=== PATIENT | female | born 1985 | race African-American/Black ===

== ENCOUNTER 2021-12-20 16:08 | Emergency (ER) | payer OTHER ==
[~2021-12-20] VITALS: Ht 167.6 cm; Wt 62.6 kg
[2021-12-20] MEDS ORDERED: GLUMETZA1000 MG PO (16:17)
== END 2021-12-20 20:29 | disposition home or self-care (01) ==
LOC: ER 16:08
DX: K29.60 Other gastritis without bleeding (principal)

== ENCOUNTER 2022-05-07 00:31 | Emergency (ER) | payer OTHER ==
[~2022-05-07] VITALS: Ht 160 cm; Wt 54.4 kg
[~2022-05-07 00:31] MED LIST: GLUMETZA1000 MG PO
[2022-05-07] MEDS ORDERED: TENCON 50-3251 EACH PO (05:37)
== END 2022-05-07 05:50 ==
LOC: ER 00:31
DX: G43.009 Migraine without aura, not intractable, without status migrainosus (principal); E11.9 Type 2 diabetes mellitus without complications; Z79.84 Long term (current) use of oral hypoglycemic drugs

== ENCOUNTER 2023-01-19 18:03 | Emergency (ER) | payer OTHER ==
[~2023-01-19] VITALS: Ht 160 cm; Wt 75.7 kg
[~2023-01-19 18:03] MED LIST changes: +TENCON 50-3251 EACH PO
[2023-01-19] MEDS ORDERED: ZESTRIL20 MG PO (18:12)
[2023-01-19] MEDS ORDERED: DICLOFENAC SODI75 MG PO (20:20)
[2023-01-19] MEDS ORDERED: NORFLEX100MG PO (20:20)
== END 2023-01-19 20:27 | disposition home or self-care (01) ==
LOC: ER 18:03
DX: M54.2 Cervicalgia (principal); R51.9 Headache, unspecified; I10 Essential (primary) hypertension; E11.9 Type 2 diabetes mellitus without complications; R11.10 Vomiting, unspecified; Z20.822 Contact with and (suspected) exposure to COVID-19

== ENCOUNTER 2023-03-08 22:34 | Emergency (ER) | payer OTHER ==
[~2023-03-08] VITALS: Ht 162.6 cm; Wt 77.1 kg
[~2023-03-08 22:34] MED LIST changes: +DICLOFENAC SODI75 MG PO; +NORFLEX100MG PO; +ZESTRIL20 MG PO
[2023-03-08] MEDS ORDERED: TOPROL XL25 M1 PO (22:51)
[2023-03-08] MEDS ORDERED: METFORMIN HCL1000 M2 PO (22:51)
== END 2023-03-08 23:56 | disposition home or self-care (01) ==
LOC: ER 22:34
DX: G43.809 Other migraine, not intractable, without status migrainosus (principal)

== ENCOUNTER → 2023-04-18 | Emergency (ER) | payer OTHER ==
[~2023-04-18] VITALS: Ht 160 cm; Wt 75.3 kg
[~2023-04-18] MED LIST changes: +LISINOPRIL-HCT1 EAC1 PO; +METFORMIN HCL1000 M2 PO; +TOPROL XL25 M1 PO
== END | disposition left against medical advice (07) ==
LOC: ER 23:16
DX: Z53.21 Procedure and treatment not carried out due to patient leaving prior to being seen by health care provider (principal)

== ENCOUNTER 2023-04-19 13:11 | Emergency (ER) | payer OTHER ==
[~2023-04-19] VITALS: Ht 160 cm; Wt 75.3 kg
== END 2023-04-19 16:16 | disposition home or self-care (01) ==
LOC: ER 13:11
DX: R60.0 Localized edema (principal); Z91.013 Allergy to seafood

== ENCOUNTER 2023-05-03 22:45 | Emergency (ER) | payer OTHER ==
[~2023-05-03] VITALS: Ht 160 cm; Wt 54.4 kg
== END 2023-05-04 01:55 | disposition home or self-care (01) ==
LOC: ER 22:45
DX: R11.10 Vomiting, unspecified (principal); E11.9 Type 2 diabetes mellitus without complications; Z79.84 Long term (current) use of oral hypoglycemic drugs; Z91.013 Allergy to seafood

== ENCOUNTER → 2023-08-29 | Emergency (ER) | payer OTHER ==
[~2023-08-29] VITALS: Ht 160 cm; Wt 75.3 kg
== END | disposition left against medical advice (07) ==
LOC: ER 21:38
DX: Z53.21 Procedure and treatment not carried out due to patient leaving prior to being seen by health care provider (principal)

== ENCOUNTER 2023-10-17 14:55 | Emergency (ER) | payer OTHER ==
[~2023-10-17] VITALS: Ht 160 cm; Wt 74.8 kg
[2023-10-17 17:04] LABS: HEMATOCRIT 33.7 % (36.0-45.00); HEMOGLOBIN 11.4 g/dL (12.0-15.00); MEAN CELL VOLUME 86.5 fL (80.00-100.00); MEAN CORPUSCULAR HEMOGLOBIN 29.2 pg (27.00-32.0); MEAN CORPUSCULAR HGB CONC 33.8 g/dl (32.0-36.0); PLATELET COUNT 516 K/uL (150-450)
[2023-10-17 18:23] LABS: ALBUMIN 1.9 gm/dL (3.4-5.0); BILIRUBIN TOTAL 0.24 mg/dL (0.3-1.2); CALCIUM 8.8 mg/dL (8.5-10.1); CREATININE SERUM 0.72 mg/dL (0.55-1.02); GFR 91.14; GLOBULINA 3.6 G/DL (2.4-3.5); POTASSIUM 3.49 mEq/L (3.5-5.1); TOTAL PROTEIN 5.5 gm/dL (6.4-8.2)
== END 2023-10-17 23:49 | disposition home or self-care (01) ==
LOC: ER 14:55
PROVIDERS: General Practice
DX: I10 Essential (primary) hypertension (principal); Z20.822 Contact with and (suspected) exposure to COVID-19

== ENCOUNTER 2023-12-16 09:39 | Emergency (ER) | payer OTHER ==
[~2023-12-16] VITALS: Ht 157.5 cm; Wt 74.8 kg
[2023-12-16] MEDS ORDERED: IRON236 MG (10:19)
[2023-12-16] MEDS ORDERED: KETOROLAC TROMETHAMINE 30 MG VIAL IM STA (10:31)
[2023-12-16 11:47] LABS: CALCIUM 8.7 mg/dL (8.5-10.1); CREATININE SERUM 0.79 mg/dL (0.55-1.02); GFR 81.89; POTASSIUM 3.38 mEq/L (3.5-5.1)
== END 2023-12-16 12:35 | disposition home or self-care (01) ==
LOC: ER 09:39
PROVIDERS: General Practice
DX: M94.0 Chondrocostal junction syndrome [Tietze] (principal); Z91.013 Allergy to seafood; E11.9 Type 2 diabetes mellitus without complications; Z79.84 Long term (current) use of oral hypoglycemic drugs

== ENCOUNTER 2024-07-04 10:57 | Emergency (ER) | payer OTHER ==
[~2024-07-04] VITALS: Ht 160 cm; Wt 72.6 kg
[~2024-07-04 10:57] MED LIST changes: +IRON236 MG
[2024-07-04] MEDS ORDERED: HYDROCHLOROTHIA25 MG (11:28)
[2024-07-04] MEDS ORDERED: CARVEDILOL6.25 MG (11:28)
[2024-07-04] MEDS ORDERED: LIPITOR40 M1 (11:28)
[2024-07-04] MEDS ORDERED: FUROsemide 20 MG/2 ML VIAL IV ONE (11:45)
[2024-07-04] MEDS ORDERED: FUROsemide 20 MG/2 ML VIAL ONE (12:02)
[2024-07-04 13:06] LABS: ALBUMIN 1.6 gm/dL (3.4-5.0); BILIRUBIN TOTAL 0.39 mg/dL (0.3-1.2); CALCIUM 8.7 mg/dL (8.5-10.1); CREATININE SERUM 0.78 mg/dL (0.55-1.02); GFR 82.65; GLOBULINA 3.2 G/DL (2.4-3.5); POTASSIUM 3.27 mEq/L (3.5-5.1); TOTAL PROTEIN 4.8 gm/dL (6.4-8.2)
[2024-07-04 13:15] LABS: HEMATOCRIT 33.8 % (36.0-45.00); HEMOGLOBIN 11.3 g/dL (12.0-15.00); MEAN CELL VOLUME 87.4 fL (80.00-100.00); MEAN CORPUSCULAR HEMOGLOBIN 29.2 pg (27.00-32.0); MEAN CORPUSCULAR HGB CONC 33.4 g/dl (32.0-36.0); PLATELET COUNT 428 K/uL (150-450); RED BLOOD COUNT 3.87 M/uL (4.00-6.00)
[2024-07-04 13:36] LABS: URINE APPEARANCE Clear; URINE BILIRRUBIN Negative (NEGATIVE); URINE BLOOD Small; URINE COLOR Yellow; URINE KETONE Negative (NEGATIVE); URINE LEUKOCYTE Negative; URINE NITRATE Negative; URINE UROBILINOGEN 0.2 E.U./dl
[2024-07-04 13:40] LABS: URINE BACTERIA 413.1 uL (0.0-1933); URINE RBC 13.1 uL (0.0-20.8); URINE WBC 15.7 uL (0.0-23.2)
[2024-07-04 13:50] LABS: URINE CAST 1.06 uL (0.0-1.40); URINE GLUCOSE >=1000 MG/DL (NEGATIVE); URINE PROTEIN 300 (NEGATIVE)
== END 2024-07-04 14:03 | disposition home or self-care (01) ==
LOC: ER 10:59
PROVIDERS: Emergency Medicine
DX: R60.0 Localized edema (principal); R10.30 Lower abdominal pain, unspecified; K29.80 Duodenitis without bleeding; N28.1 Cyst of kidney, acquired; I10 Essential (primary) hypertension; E11.9 Type 2 diabetes mellitus without complications; Z79.84 Long term (current) use of oral hypoglycemic drugs; Z91.013 Allergy to seafood

== ENCOUNTER 2025-08-21 22:34 | Emergency (ER) | payer OTHER ==
[~2025-08-21] VITALS: Ht 160 cm; Wt 72.6 kg
[~2025-08-21 22:34] MED LIST changes: +CARVEDILOL6.25 MG; +HYDROCHLOROTHIA25 MG; +LIPITOR40 M1
[2025-08-22] MEDS ORDERED: NIFEDIPINE 10 MG CAPSULE PO ONE ×2 (00:15→00:32)
[2025-08-22] MEDS ORDERED: KETOROLAC TROMETHAMINE 60 MG VIAL IM ONE ×2 (01:00→01:52)
[2025-08-22 01:21] LABS: BASO % 0.4 % (0.1-1.2); EOS # 0.58 (0.04-0.54); EOS % 5.8 % (0.7-7.0); LYMPH # 2.52 (1.18-3.74); LYMPH % 25.3 % (19.3-53.1); MEAN PLATELET VOLUME 8.80 fl (9.4-12.4); MONO # 0.86 (0.24-0.82); MONO % 8.6 % (4.7-12.5); NEUT # 5.95 (1.56-6.13); NEUT % 59.7 % (34.0-71.1); RED CELL DISTRIBUTION WIDTH 13.2 % (11.6-14.4)
[2025-08-22 01:39] LABS: EOSINOPHIL MAN 6.0 %; LYMPHOCYTE MAN 27.0 %; MONOCYTE MAN 9.0 %; NEUTROPHILS MAN 56.0 %
[2025-08-22] MEDS ORDERED: NORFLEX100MG PO (03:12)
[2025-08-22] MEDS ORDERED: FERREX 150 FOR1 EACH PO (03:16)
== END 2025-08-22 03:39 | disposition home or self-care (01) ==
LOC: ER 22:34
PROVIDERS: General Practice
DX: R07.89 Other chest pain (principal); I10 Essential (primary) hypertension; Z91.013 Allergy to seafood